=== PATIENT | female | born 1975 | race Caucasian/White ===

== ENCOUNTER 2017-05-30 07:07 | Emergency (ER) | payer OTHER ==
[2017-05-30 09:07] VITALS: BP 129/65
== END 2017-05-30 09:07 | disposition home or self-care (01) ==
LOC: ED 07:07
DX: S39.012A Strain of muscle, fascia and tendon of lower back, initial encounter (principal); X58.XXXA Exposure to other specified factors, initial encounter; Y93.89 Activity, other specified; Y99.8 Other external cause status; Y92.89 Other specified places as the place of occurrence of the external cause
CPT/HCPCS: J1885